=== PATIENT | female | born 1995 | race African-American/Black ===

== ENCOUNTER 2019-08-08 20:43 | Emergency (ER) | payer SELFPAY ==
[~2019-08-08] VITALS: Ht 175.3 cm; Wt 121.0 kg
[2019-08-08 22:30] VITALS: BP 140/94
== END 2019-08-09 01:57 | disposition left against medical advice (07) ==
LOC: ER 20:43
DX: R10.9 Unspecified abdominal pain (principal); Z53.21 Procedure and treatment not carried out due to patient leaving prior to being seen by health care provider

== ENCOUNTER 2019-08-09 21:33 | Emergency (ER) | payer SELFPAY ==
[~2019-08-09] VITALS: Ht 175.3 cm; Wt 123.0 kg
[2019-08-09 22:51] LABS: CLARITY URINE CLOUDY (CLEAR); COLOR URINE YELLOW (YELLOW); KETONES URINE TRACE (NEGATIVE); LEUKOCYTE ESTERASE URINE 3+ (NEGATIVE); NITRITE URINE NEGATIVE (NEGATIVE); OCCULT BLOOD URINE TRACE (NEGATIVE); PH URINE 5.5 (4.5-8.0); PROTEIN URINE NEGATIVE (NEGATIVE); SPECIFIC GRAVITY URINE 1.021 (1.005-1.030); UROBILINOGEN URINE 0.2 E.U./dL (0.2-1.0)
[2019-08-10] MEDS ORDERED: ONDANSETRON HCL 4MG/2ML INJ IV NR (00:28)
[2019-08-10] MEDS ORDERED: SODIUM CHLORIDE 0.9% 1,000 ML IV NR (00:28)
[2019-08-10] MEDS ORDERED: CEFTRIAXONE 1 G PREMIX 50 ML IV NR (00:30)
[2019-08-10] MEDS: MORPHINE SULFATE 4 MG/ML CPJ (NOT FOR IM USE) IV NR ×2 (00:49→02:41)
[2019-08-10 00:56] LABS: CHLORIDE 106 mEq/L (98-107)
[2019-08-10 02:22] LABS: BASOPHILS % 0.3 % (0.0-2.0); EOSINOPHILS % 1.9 % (0.0-5.0); HEMATOCRIT. 34.7 % (36.0-48.0); HEMOGLOBIN. 11.4 g/dL (12.0-16.0); LYMPHOCYTES % 34.5 % (20.0-50.0); MEAN CORPUSCULAR HEMOGLOBIN 25.5 pg (28.0-32.0); MEAN CORPUSCULAR VOLUME 77.5 fL (81.0-99.0); MEAN PLATELET VOLUME 7.4 fl (7.4-10.4); MONOCYTES % 6.8 % (2.0-8.0); NEUTROPHILS % 56.5 % (40.0-76.0); PLATELET 360 x1000/uL (130-400); RED BLOOD CELL COUNT 4.47 mill/uL (4.2-5.4); RED CELL DISTRIBUTION WIDTH 16.3 % (11.6-14.6)
[2019-08-10] MEDS ORDERED: ACETAMINOPHEN 325MG TABLET PO ONE (08:30)
[2019-08-10 11:30] VITALS: BP 122/78
== END 2019-08-10 12:09 | disposition home or self-care (01) ==
LOC: EEVIPCON 21:52 → ER 21:52
DX: N12 Tubulo-interstitial nephritis, not specified as acute or chronic (principal); T74.11XA Adult physical abuse, confirmed, initial encounter; R10.9 Unspecified abdominal pain; Y07.03 Male partner, perpetrator of maltreatment and neglect; Y04.2XXA Assault by strike against or bumped into by another person, initial encounter; Y93.89 Activity, other specified; Y92.89 Other specified places as the place of occurrence of the external cause; R03.0 Elevated blood-pressure reading, without diagnosis of hypertension; F12.90 Cannabis use, unspecified, uncomplicated; Z87.891 Personal history of nicotine dependence
CPT/HCPCS: 36415; 74176; 80053; 81003; 81025; 83605; 85025; 87040; 87077; 87086; 87186; 96365; 96375; 99284; J0696; J2270; J2405

== ENCOUNTER 2019-09-02 23:44 | Emergency (ER) | payer SELFPAY ==
[~2019-09-02] VITALS: Ht 175.3 cm; Wt 121.0 kg
[2019-09-03] MEDS ORDERED: ONDANSETRON HCL 4MG/2ML INJ IV STA (02:52)
[2019-09-03] MEDS ORDERED: SODIUM CHLORIDE 0.9% 1,000 ML IV ONE (02:52)
[2019-09-03] MEDS ORDERED: VISCOUS LIDOCAINE 2% 15 ML UDC PO ONE (03:00)
[2019-09-03] MEDS ORDERED: MAGNESIUM/ALUMINUM HYDROXIDE/SIMETHICONE 30ML UDC PO ONE (03:00)
[2019-09-03 03:26] LABS: BASOPHILS % 0.4 % (0.0-2.0); EOSINOPHILS % 0.8 % (0.0-5.0); HEMATOCRIT. 33.7 % (36.0-48.0); HEMOGLOBIN. 10.7 g/dL (12.0-16.0); LYMPHOCYTES % 31.1 % (20.0-50.0); MEAN CORPUSCULAR HEMOGLOBIN 25.1 pg (28.0-32.0); MEAN CORPUSCULAR VOLUME 78.7 fL (81.0-99.0); MEAN PLATELET VOLUME 7.5 fl (7.4-10.4); MONOCYTES % 9.6 % (2.0-8.0); NEUTROPHILS % 58.1 % (40.0-76.0); PLATELET 340 x1000/uL (130-400); RED BLOOD CELL COUNT 4.28 mill/uL (4.2-5.4); RED CELL DISTRIBUTION WIDTH 15.7 % (11.6-14.6)
[2019-09-03 03:27] LABS: CHLORIDE 108 mEq/L (98-107)
[2019-09-03] MEDS ORDERED: MORPHINE SULFATE 4 MG/ML CPJ (NOT FOR IM USE) IV ONE (03:45)
[2019-09-03 04:28] LABS: HCG SCREEN NEGATIVE
[2019-09-03 07:29] VITALS: BP 114/81
[2019-09-03 07:29] LABS: CLARITY URINE CLOUDY (CLEAR); COLOR URINE AMBER (YELLOW); KETONES URINE NEGATIVE (NEGATIVE); LEUKOCYTE ESTERASE URINE 2+ (NEGATIVE); NITRITE URINE NEGATIVE (NEGATIVE); OCCULT BLOOD URINE 3+ (NEGATIVE); PROTEIN URINE TRACE (NEGATIVE); SPECIFIC GRAVITY URINE 1.035 (1.005-1.030)
== END 2019-09-03 09:09 | disposition home or self-care (01) ==
LOC: ER 23:44
DX: K52.9 Noninfective gastroenteritis and colitis, unspecified (principal); R07.9 Chest pain, unspecified; J45.909 Unspecified asthma, uncomplicated; F12.10 Cannabis abuse, uncomplicated; Z87.891 Personal history of nicotine dependence
CPT/HCPCS: 36415; 71045; 80053; 81003; 81025; 83690; 83880; 84484; 84703; 85025; 87086; 93005; 96361; 96374; 96375; 99284; J2270; J2405; J7030; Z7610

== ENCOUNTER 2019-09-13 05:11 | Emergency (ER) | payer SELFPAY ==
[~2019-09-13] VITALS: Ht 170.2 cm; Wt 114.0 kg
[2019-09-13 06:04] LABS: CLARITY URINE CLEAR (CLEAR); COLOR URINE YELLOW (YELLOW); KETONES URINE NEGATIVE (NEGATIVE); LEUKOCYTE ESTERASE URINE 1+ (NEGATIVE); NITRITE URINE NEGATIVE (NEGATIVE); OCCULT BLOOD URINE NEGATIVE (NEGATIVE); PROTEIN URINE TRACE (NEGATIVE); SPECIFIC GRAVITY URINE 1.033 (1.005-1.030)
[2019-09-13 06:09] LABS: CHLORIDE 110 mEq/L (98-107)
[2019-09-13 06:19] LABS: BASOPHILS % 0.4 % (0.0-2.0); EOSINOPHILS % 0.8 % (0.0-5.0); HEMATOCRIT. 34.2 % (36.0-48.0); HEMOGLOBIN. 11.2 g/dL (12.0-16.0); MEAN CORPUSCULAR HEMOGLOBIN 25.5 pg (28.0-32.0); MEAN CORPUSCULAR VOLUME 77.7 fL (81.0-99.0); MEAN PLATELET VOLUME 7.1 fl (7.4-10.4); MONOCYTES % 7.1 % (2.0-8.0); NEUTROPHILS % 57.7 % (40.0-76.0); PLATELET 386 x1000/uL (130-400); RED CELL DISTRIBUTION WIDTH 15.4 % (11.6-14.6)
[2019-09-13] MEDS ORDERED: ONDANSETRON HCL 4MG/2ML INJ IV ONE (06:45)
[2019-09-13] MEDS ORDERED: KETOROLAC 15MG/ML VIAL IV ONE (06:45)
[2019-09-13] MEDS ORDERED: CEFTRIAXONE 1 G PREMIX 50 ML IV ONE (08:30)
[2019-09-13 18:19] VITALS: BP 120/71
== END 2019-09-13 18:20 | disposition home or self-care (01) ==
LOC: ER 05:11
DX: N39.0 Urinary tract infection, site not specified (principal)
CPT/HCPCS: 36415; 76830; 76856; 80053; 81003; 81025; 83605; 83690; 85025; 96365; 96375; 99284; J0696; J1885; J2405; Z7610

== ENCOUNTER 2019-10-07 18:02 | Emergency (ER) | payer MEDICAID ==
[~2019-10-07] VITALS: Ht 177.8 cm; Wt 121.0 kg
[2019-10-07 21:07] VITALS: BP 121/81
== END 2019-10-07 21:00 | disposition home or self-care (01) ==
LOC: ER 18:02
DX: B37.3 Candidiasis of vulva and vagina (principal)
CPT/HCPCS: 99281